=== PATIENT | female | born 1940 | race Caucasian/White ===

== ENCOUNTER 2024-09-05 07:39 | Inpatient (IN) | payer OTHER, SELFPAY ==
[2024-08-11 14:02] VITALS: BMI 31.9
[2024-08-11 15:22] LABS: ALT (SGPT) 26 U/L (0-35); AST (SGOT) 51 U/L (14-36); Albumin 4.3 g/dl (3.5-5.0); Alkaline Phosphatase 105 U/L (38-126); Blood Urea Nitrogen 28 mg/dl (7-17); Calcium 9.3 mg/dl (8.4-10.2); Carbon Dioxide 32 mmol/L (22-30); Chloride 100 mmol/L (98-107); Estimated Creatinine Clearance 67 ml/min; Glucose 88 mg/dl (70-99); Potassium 5.5 mmol/L (3.5-5.1); Sodium 140 mmol/L (135-145); Total Bilirubin 2.8 mg/dl (0.2-1.3); Total Protein 7.9 g/dl (6.3-8.2); eGFR > 60.00
[2024-08-11 15:57] LABS: Hematocrit 29.4 % (37.0-47.0); Hemoglobin 13.1 g/dL (12.0-16.0); Mean Corp Hgb Conc. 44.6 g/dL (33.0-37.0); Mean Corpuscular Hgb 52.6 pg (27.0-31.0); Mean Corpuscular Volume 118.1 fL (81.0-99.0); Mean Platelet Volume 11.6 fL (7.4-10.4); Platelet Count 232 10^3/uL (130-400); Red Blood Cell Count 2.49 10^6/uL (4.20-5.40); White Blood Cell Count 9.3 10^3/uL (4.8-10.8)
[2024-08-12 10:33] LABS: Glycohemoglobin (HgbA1c) 4.4 % (4.0-5.6)
--- NOTE | 2024-08-24 12:35 | PTCARENOTE ---
Patients 08/11 potassium 5.5- Demi @ Dr. Vaughn office notified
[2024-08-29 12:50] VITALS: BMI 31.5
[2024-08-30 12:36] VITALS: BMI 31.5
--- NOTE | 2024-09-01 12:44 | W.SUR.PREOP ---
Pre-Operative Surgical Note
-
Made aware of patient by BCMIRIAM Rutherford
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
Have requested patient return for type and cross-specimen -which hemolyzed x2
She has hx of exacerbation due to stressors-(URI 09/2023-treated with steroids with decline in Hgb requiring longer course)- she is also on B12 and folate supplementation.
This condition is complicated by cold agglutinin component and need for anticoagulation-Xarelto as indicated for persistent Afib CHADs vasc score 5 (age +2, gender, HTN, HFpEF)
Consider:
--AHG in tube method--On arrival--repeat type and cross with specimen STAT and kept close to body temp/warm water
--will not need blood on hold for OR at this time per surgeon and hematology.
--given cold agglutinin component--Forrest lujan immediately on arrival pre and post-op
--Re anticoagulation--big machine consultant Dr. Mark Burton on board with plan for oac Xarelto at modified dosing 10mh qhs until POD 3 based on hemodynamic status
--*prolong the steroid course to be initiated pre-op, intraop, and continued IV while inpatient-Prednisone taper following d/c*
PMH:
Persistent Afib
HTN
HLD
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
Hx elevated bilirubin secondary to above
--- NOTE | 2024-09-01 16:09 | PTCARENOTE ---
abnormal K+ 5.5 collected 08/11, reviewed by Dr Muñiz, repeat K+ ordered at bedside for day of surgery.
[2024-09-05] VITALS (12 sets, daily range): BP systolic 104–155; BP diastolic 50–102; PULSE 92; O2SAT 98
--- NOTE | 2024-09-05 07:42 | W.PN.UPDATE ---
Update Note
Progress Note Update
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
--AHG in tube method--On arrival--repeat type and cross with specimen STAT and kept close to body temp/warm water
--will not need blood on hold for OR at this time per surgeon and hematology.
--given cold agglutinin component--Forrest jesuser immediately on arrival pre and post-op
--*prolong the steroid course to be initiated pre-op, intraop, and continued IV while inpatient-Prednisone taper following d/c* (as indicated for hemotological disorder, inflammation/pain)
Elevated bilirubin/AST- secondary to above-avoid hepatotoxic agents
Persistent Afib-CHADs vasc score 5 (age +2, gender, HTN, HFpEF)
--Re anticoagulation--custom furrier Dr. Mark Burton on board with plan for oac Xarelto at modified dosing 10mh qhs until POD 3 based on hemodynamic status
--monitor on tele, continue BB uninterrupted
HTN
HLD
[2024-09-05] MEDS: NORMOSOL-R/PLASMALYTE-A 1000 IV (07:45)
[2024-09-05] MEDS: CELEBREX 200 MG PO (07:54)
[2024-09-05] MEDS: TYLENOL 650 MG PO (07:54)
[2024-09-05 08:02] LABS: Potassium 4.4 mmol/L (3.5-5.1)
--- NOTE | 2024-09-05 12:32 | W.DS.TRANS ---
DC Summary - Waist Pleater
-
Discharge Instructions:
Sleep Apnea Risk Low
Discharge Diagnosis/Procedures R TKA Dr. Vaughn 09/05/24
Diet As tolerated
Activity With Walker
Driving Restrictions No driving
Bathing Restrictions OK to Shower
Other Services PT
Instructions:
Stand-Alone Forms: Total Hip/Knee Replacement D/C
Changes to Home Medications: Yes
Discharge Medications:
DC Medications w/original date entered in [employer]
folic acid 1 mg tablet 1 mg PO BID 12/28/18
bumetanide 1 mg tablet 1 mg PO DAILY 11/14/21
cholecalciferol (vitamin D3) 25 mcg (1,000 unit) capsule (Vitamin D3) 25 mcg PO DAILY 11/14/21
omega 0-uij-tro-fish oil 1,000 mg (120 mg-180 mg) capsule (Fish Oil) 1,000 mg PO HS 11/14/21
metoprolol succinate 50 mg tablet,extended release 24 hr 50 mg PO BID 08/30/24
vitamin B complex 1 tab PO MOWEFR 08/30/24
Saccharomyces boulardii 250 mg capsule (Florastor) 250 mg PO BID #1 cap 09/05/24
cefadroxil 500 mg capsule 500 mg PO BID infection prevention #14 caps 09/05/24
docusate sodium 100 mg capsule (Colace) 100 mg PO BID stool softner #1 cap 09/05/24
magnesium hydroxide 400 mg/5 mL oral suspension (Milk of Magnesia) 30 ml PO HS PRN Constipation #1 mL 09/05/24
mupirocin 2 % topical ointment 1 applic topical BID 09/05/24
ondansetron 4 mg disintegrating tablet 4 mg PO Q6H PRN n/v #20 tabs 09/05/24
oxycodone 5 mg tablet 5 mg PO Q6H PRN 1 tab moderate pain, 2 tabs severe pain #30 tabs 09/05/24
prednisone 10 mg tablet 40 mg (4 x 10 mg) PO TAPER inflammation #20 tabs 09/05/24
rivaroxaban 20 mg tablet (Xarelto) 10 mg (1/2 x 20 mg) PO QPM #0 tabs 09/05/24
sennosides 8.6 mg tablet (Senokot) 17.2 mg (2 x 8.6 mg) PO BID laxative #2 tabs 09/05/24
Home Medication Changes
Saccharomyces boulardii 250 mg capsule (Florastor) 250 mg PO BID #1 cap 09/05/24
cefadroxil 500 mg capsule 500 mg PO BID infection prevention #14 caps 09/05/24
docusate sodium 100 mg capsule (Colace) 100 mg PO BID stool softner #1 cap 09/05/24
magnesium hydroxide 400 mg/5 mL oral suspension (Milk of Magnesia) 30 ml PO HS PRN Constipation #1 mL 09/05/24
mupirocin 2 % topical ointment 1 applic topical BID 09/05/24
ondansetron 4 mg disintegrating tablet 4 mg PO Q6H PRN n/v #20 tabs 09/05/24
oxycodone 5 mg tablet 5 mg PO Q6H PRN 1 tab moderate pain, 2 tabs severe pain #30 tabs 09/05/24
prednisone 10 mg tablet 40 mg (4 x 10 mg) PO TAPER inflammation #20 tabs 09/05/24
rivaroxaban 20 mg tablet (Xarelto) 10 mg (1/2 x 20 mg) PO QPM #0 tabs 09/05/24
sennosides 8.6 mg tablet (Senokot) 17.2 mg (2 x 8.6 mg) PO BID laxative #2 tabs 09/05/24
Pending Results: No
--- NOTE | 2024-09-05 13:00 | PTCARENOTE ---
Pt received from the PACU VIA bed, transport was w/o incident. Pt is AAOx3, HR irreg (afib, baseline), resp. easy, VSS, Pt is afebrile. Pt's right knee with scant shadowing noted. Primaseal dressing intact. Pt able to move and wiggle both right and
left foot along with toes. Pt w it h positive DP pulses b/l. Pt denies pain or nausea at this time. Pt instructed on plan of care. Pt verbalized understanding of instructions. Call marvin is within reach.
[2024-09-05] MEDS: ULTRAM PO (15:37)
[2024-09-05] MEDS: DECADRON 6 MG IV (16:27)
[2024-09-05] MEDS: ANCEF 5 IV (16:27)
[2024-09-05] MEDS: ROXICODONE 5 MG PO ×2 (16:28→22:05)
[2024-09-05] MEDS: XARELTO 10 MG PO (16:28)
[2024-09-05] MEDS: BACTROBAN 2% OINTMENT 1 APPLIC NASAL (20:11)
[2024-09-05] MEDS: COLACE 100 MG PO (20:12)
[2024-09-05] MEDS: SENOKOT 17.2 MG PO (20:12)
[2024-09-05] MEDS: ULTRAM 50 MG PO (20:13)
[2024-09-05] MEDS: TOPROL XL 50 MG PO (20:14)
[2024-09-05] MEDS: NEURONTIN 300 MG PO (22:05)
[2024-09-06] MEDS: DECADRON 6 MG IV ×2 (00:21→09:15)
[2024-09-06] MEDS: ROXICODONE 10 MG PO ×2 (00:24→06:26)
[2024-09-06 00:58] LABS: Hemoglobin 11.2 g/dL (12.0-16.0)
[2024-09-06] MEDS: ANCEF 5 IV (02:27)
[2024-09-06 03:10] VITALS: BP 139/92
[2024-09-06 06:00] VITALS: BMI 31.7
[2024-09-06 07:31] VITALS: BP 138/94
[2024-09-06] MEDS: ULTRAM PO (08:00)
[2024-09-06] MEDS: BACTROBAN 2% OINTMENT 1 APPLIC NASAL (09:13)
[2024-09-06] MEDS: TOPROL XL 50 MG PO (09:14)
[2024-09-06] MEDS: SENOKOT 17.2 MG PO (09:15)
[2024-09-06] MEDS: BUMEX 1 MG PO (09:15)
[2024-09-06] MEDS: COLACE 100 MG PO (09:15)
[2024-09-06 09:25] VITALS: BP 120/96; BP 125/80; BP 147/98; PULSE 104; PULSE 87; O2SAT 92
--- NOTE | 2024-09-06 11:15 | W.PN.ORTHO ---
Today's Communication / Plan
-
d/c home care-PT/OT/VN-blood draw this week-results to heme and CBB
Assessment
.
Distal Motor Intact: Yes
Dressing:
Clean, dry and intact.
Assessment:
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
---*prolong the steroid course to be initiated pre-op, intraop, and continued IV while inpatient-Prednisone taper following d/c* (as indicated for hemotological disorder, inflammation/pain)
--- awaiting this am Hgb--repeat Thurs or Fri at home
Macrocytic anemia-on oral B12 and folate at home--dose 1000Mcg IM B12 while inpatient
Elevated bilirubin/AST- secondary to above-avoid hepatotoxic agents
Persistent Afib-CHADs vasc score 5 (age +2, gender, HTN, HFpEF)
--Re anticoagulation--optical coating technician Dr. Mark Burton on board with plan for oac Xarelto at modified dosing 10mh qhs until POD 3 based on hemodynamic status
--stable on tele, continue BB uninterrupted
Plan
.
Surgery / Date: R TKA Dr. Vaughn 09/05/24
DVT Prophylaxis: Other (Xarelto 10mghs-resume 20mg hs dosing POD#3 unless otherwise advised)
Activity:
Out of bed.
PT/OT
Discharge Plan: Home w/ VN
Subjective
.
.:
Patient resting comfortably.
Vital Signs and Labs
.
Vital Signs and Labs:
Lab Results
09/05/24 07:42
Temp Pulse Resp BP Pulse Ox
97.3 F 89 16 138/94 94
09/06/24 07:31 09/06/24 07:31 09/06/24 07:31 09/06/24 07:31 09/06/24 07:31
Physical Exam
-
HEENT: No pallor, cyanosis, or jaundice. Throat clear.
NECK: Supple. No JVD.
RESPIRATORY: Lungs clear to auscultation.
CVS: S1, S2 normal. RRR.� No murmur, rub or gallop.
ABDOMEN: Soft, non-tender. No distension. BS+/normal.
EXTREMITIES: strength equal, no calf pain with palpation
ANIMAL BIOLOGIST: AOx3. No focal deficits. property economist grossly intact
[2024-09-06 12:09] VITALS: BP 120/83; PULSE 107
[2024-09-06] MEDS: CYANOCOBALAMIN 1000 MCG IM (12:18)
[2024-09-06] MEDS: FOLVITE 1 MG PO (12:21)
--- NOTE | 2024-09-06 12:33 | CM ---
Addendum entered by Lennie Bustillo 09/06/24 12:48:
Referral accepted by [facility]
Original Note:
Met with pt at bedside with daughters
Pt reports she lives with alone in a ranch style home; 5 steps to enter. Family lives nearby and will assist
Independent with ADL's, uses rolling walker to ambulate, drives
DME - rolling walker, single point cane, shower chair, raised toilet seat
SNF/HH - no past hx
Has ride at discharge
PCP - [facility]
Pharm - [facility]
PT/OT - recs HH - no preference per pt
Referral sent in [facility] for HH needs
Given IMM
Plan home with [facility]
f - [phone]
[2024-09-06 12:44] VITALS: BP 133/76
== END 2024-09-06 15:48 | disposition home health service (06) | DRG 470 ==
LOC: 2 SOUTH 07:39
PROVIDERS: Anesthesiology; Physician Assistant Medical; ADMITTING PHYSICIAN Specialist; FAMILY PHYSICIAN Family Medicine; REFERRING PHYSICIAN Internal Medicine Cardiovascular Disease
PROC: 0SRC0J9 Replacement of Right Knee Joint with Synthetic Substitute, Cemented, Open Approach (ICD-10-PCS; 2024-09-05)
DX: M17.11 Unilateral primary osteoarthritis, right knee (principal); I50.32 Chronic diastolic (congestive) heart failure; I48.19 Other persistent atrial fibrillation; D59.10 Autoimmune hemolytic anemia, unspecified; I42.9 Cardiomyopathy, unspecified; I11.0 Hypertensive heart disease with heart failure; Z79.01 Long term (current) use of anticoagulants; Z68.32 Body mass index [BMI] 32.0-32.9, adult; E66.9 Obesity, unspecified; D53.9 Nutritional anemia, unspecified
CPT/HCPCS: 36415; 73560; 80053; 83036; 84132; 85018; 85027; 86850; 86870; 86900; 86901; 87070; 97110; 97116; 97162; 97167; 97530; 97535; C1713; C1776

== ENCOUNTER → 2024-09-19 10:54 | Outpatient (REF) | payer OTHER, SELFPAY ==
[2024-09-19 11:51] LABS: ALT (SGPT) 36 U/L (0-35); AST (SGOT) 56 U/L (14-36); Albumin 3.9 g/dl (3.5-5.0); Alkaline Phosphatase 134 U/L (38-126); Blood Urea Nitrogen 21 mg/dl (7-17); Calcium 8.9 mg/dl (8.4-10.2); Carbon Dioxide 30 mmol/L (22-30); Chloride 100 mmol/L (98-107); Glucose 98 mg/dl (70-99); Potassium 4.8 mmol/L (3.5-5.1); Sodium 137 mmol/L (135-145); Total Bilirubin 4.2 mg/dl (0.2-1.3); Total Protein 7.2 g/dl (6.3-8.2); eGFR > 60.00
[2024-09-19 12:30] LABS: % Basophils 0.8 % (0-2); % Eosinophils 2.2 % (0-6); % Immature Granulocytes 2.2 % (0-0.5); % Lymphocytes 11.8 % (20.5-51.1); % Monocytes 9.9 % (1.7-9.3); % Neutrophils 72.9 % (42.2-75.2); Absolute Basophils 0.1 10^3/uL (0-0.2); Absolute Eosinophils 0.3 10^3/uL (0-0.7); Absolute Immature Granulocytes 0.3 10^3/uL (0-0.05); Absolute Lymphocytes 1.4 10^3/uL (1.2-3.4); Absolute Monocytes 1.1 10^3/uL (0.1-0.6); Absolute Neutrophils 8.3 10^3/uL (1.4-6.5); Mean Platelet Volume 10.5 fL (7.4-10.4); Nucleated Red Blood Cells % 0 %; Platelet Count 275 10^3/uL (130-400); White Blood Cell Count 11.4 10^3/uL (4.8-10.8)
[2024-09-19 13:43] LABS: Red Blood Cell Count 3.29 10^6/uL (4.20-5.40)
[2024-09-19 13:44] LABS: Hematocrit 32.9 % (37.0-47.0); Hemoglobin 10.5 g/dL (12.0-16.0); Mean Corp Hgb Conc. 31.9 g/dL (33.0-37.0); Mean Corpuscular Hgb 31.9 pg (27.0-31.0); Mean Corpuscular Volume 100 fL (81.0-99.0)
[2024-09-19 13:45] LABS: Red Cell Dist. Width 16.3 % (11.5-14.5)
== END ==
LOC: REG 10:54
PROVIDERS: ATTENDING PHYSICIAN Physician Assistant Surgical; FAMILY PHYSICIAN Family Medicine
DX: Z96.651 Presence of right artificial knee joint (principal)
CPT/HCPCS: 36415; 80053; 85025